=== PATIENT | female | born 1990 | race Caucasian/White ===

== ENCOUNTER 2017-05-13 22:28 | Emergency (ER) | payer OTHER ==
[~2017-05-13] VITALS: Ht 160 cm; Wt 54.9 kg
[~2017-05-13 22:28] MED LIST: LEXA10TA PO; REST30CA PO; TRI-TAB PO
[2017-05-13 22:35] VITALS: BP 130/85; PULSE 80; RESP 18; TEMP 98.4; O2SAT 97
[2017-05-13] MEDS ORDERED: TETANUS/DIPHTHERIA TOXOID ADULT 0.5 ML VIAL IM ONE (23:15)
--- NOTE | 2017-05-13 23:15 | PD ---
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 She denies any other injury. Her tetanus shot is about 10 years old. She does not want sutures of possible. PFSH Past Medical History Asthma: Yes (USED INHALERS IN THE PAST ) Cardiovascular Problems: No Diminished Hearing: No Genitourinary: No Musculoskeletal: No Neurologic: No Reproductive: Yes (CERVICAL DYSPLASIA 08/2014, CULPOSCOPY 09/2014) Respiratory: Yes (ASTHMA) Influenza Vaccination: No ?: Not LMP: 1 WEEK Past Surgical History Eye Surgery: Yes ( left facial/ orbit repair with hardware) Other Surgery: Yes (CULPOSCOPY SEPTEMBER 2014) Social History Alcohol Use: Yes (occ) Tobacco Use: No Substance Use: Yes (MARIJUANA) Allergies-Medications (Allergen,Severity, Reaction): Coded Allergies: Vu Pepper (Verified Allergy, Severe, Hives & Upset stomach, 05/13/17) Reported Meds & Prescriptions Reported Meds & Active Scripts Active Review of Systems Except as stated in HPI: all other systems reviewed are Neg Physical Exam Narrative GENERAL: Well-nourished, well-developed patient in minimal apparent distress with her left thumb laceration. SKIN: Focused skin assessment warm/dry. There is a fairly superficial 2 cm laceration at the base of the left thumb. No tendons are exposed and the laceration is barely through the skin. HEAD: Normocephalic. EYES: No scleral icterus. No injection or drainage. NECK: Supple, trachea midline. No JVD or lymphadenopathy. CARDIOVASCULAR: Regular rate and rhythm without murmurs, gallops, or rubs. RESPIRATORY: Breath sounds equal bilaterally. No accessory muscle use. GASTROINTESTINAL: Abdomen soft, non-tender, nondistended. MUSCULOSKELETAL: No cyanosis, or edema. BACK: Nontender without obvious deformity. No CVA tenderness. Data Data Last Documented VS Vital Signs Date Time Temp Pulse Resp B/P Pulse Ox O2 Delivery O2 Flow Rate FiO2 05/13/17 22:35 98.4 80 18 130/85 97 MDM Medical Decision Making Medical Screen Exam Complete: Yes Emergency Medical Condition: Yes Medical Record Reviewed: Yes Differential Diagnosis Laceration needing repair, minor laceration not needing repair, laceration involving tendons, nerves or vessels Narrative Course This appears to be a minor laceration not needing repair. It does not involve tendons, nerves or vessels. I did offer to suture it if the patient wanted that the patient did not want it sutured. Diagnosis Primary Impression: Laceration of thumb Additional Instructions: As we discussed, keep the laceration clean and dry and change the bandage daily starting on the fifth. If you have any problems please return to the emergency department. Med/Other Pt SpecificInfo: No Change to Meds Disposition: 01 DISCHARGE HOME Condition: Stable Vinnie Ivory MD May 13, 2017 23:15
== END 2017-05-13 23:37 | disposition home or self-care (01) ==
LOC: PHED 22:28
DX: S61.012A Laceration without foreign body of left thumb without damage to nail, initial encounter (principal); W45.8XXA Other foreign body or object entering through skin, initial encounter; Y93.89 Activity, other specified; Y92.511 Restaurant or cafe as the place of occurrence of the external cause; Y99.0 Civilian activity done for income or pay; Z23 Encounter for immunization
CPT/HCPCS: 90471; 90714